=== PATIENT | female | born 1960 | race Caucasian/White ===

== ENCOUNTER 2019-03-30 12:31 | Inpatient (IN) | payer OTHER ==
[~2019-03-30] VITALS: Ht 170.2 cm; Wt 73.0 kg
[2019-03-30] VITALS (10 sets, daily range): BP systolic 109–161; BP diastolic 61–98
[2019-03-30 13:12] LABS: BASOPHILS % (AUTO) 0.6 % (0-1); EOSINOPHILS # (AUTO) 0.1 X10'3 (0-0.9); EOSINOPHILS % (AUTO) 1.8 % (0-6); HEMATOCRIT 35.5 % (35.0-45.0); HEMOGLOBIN 11.8 g/dl (12.0-16.0); LYMPHOCYTES % (AUTO) 14.4 % (21-51); MEAN CORPUSCULAR HEMOGLOBIN 27.9 PG (27.0-31.0); MEAN CORPUSCULAR HGB CONC 33.2 g/dL (33.0-36.5); MEAN CORPUSCULAR VOLUME 83.9 FL (78-98); MEAN PLATELET VOLUME 7.4 FL (7.4-10.4); MONOCYTES # (AUTO) 0.4 X10'3 (0-0.9); MONOCYTES % (AUTO) 6.2 % (2-12); NEUTROPHILS # (AUTO) 5.5 X10'3 (1.8-7.7); PLATELET COUNT 210 X10'3 (140-440); RED BLOOD COUNT 4.23 X10'6 (4.20-5.60); RED CELL DISTRIBUTION WIDTH 14.5 % (11.5-14.5); WHITE BLOOD COUNT 7.2 X10'3 (4.5-11.0)
[2019-03-30 13:36] LABS: ALANINE AMINOTRANSFERASE 44 U/L (12-78); ALBUMIN 3.8 G/DL (3.4-5.0); ALBUMIN/GLOBULIN RATIO 1.1 (1.1-1.5); ALKALINE PHOSPHATASE 84 IU/L (46-116); ANION GAP 6 (8-16); ASPARTATE AMINO TRANSFERASE 52 U/L (10-37); BILIRUBIN,TOTAL 0.6 MG/DL (0.1-1.0); BLOOD UREA NITROGEN 17 MG/DL (7-18); BUN/CREATININE RATIO 18.1 (6.6-38.0); CHLORIDE 106 MMOL/L (99-107); CREATININE 0.94 MG/DL (0.40-0.90); GLUCOSE 124 MG/DL (70-104); LIPASE 179 U/L (73-393); POTASSIUM 3.7 MMOL/L (3.5-5.1); SODIUM 142 MMOL/L (135-145); TOTAL CARBON DIOXIDE 29.9 MMOL/L (24-32); TOTAL PROTEIN 7.4 G/DL (6.4-8.2); TROPONIN I < 0.04 NG/ML (0.0-0.05); eGFR 61 ML/MIN
[2019-03-30 13:58] LABS: CALCIUM 9.3 MG/DL (8.5-10.1)
[2019-03-30] MEDS ORDERED: ondansetron/PF 4mg/2ml inj IV ONE (15:15)
[2019-03-30] MEDS ORDERED: fentaNYL/PF 50MCG/1 ML 2ML syringe IV ONE (15:15)
[2019-03-30] MEDS ORDERED: ketorolac trometh. 30mg/ml inj. IV ONE (15:15)
--- NOTE | 2019-03-30 16:48 | NUR ---
DR. WASHINGTON IN TO SEE PT FOR ADMIT.
[2019-03-30] MEDS ORDERED: HYDROcodone/acetaminophen 5mg/325mg tablet PO PRN (17:00)
[2019-03-30] MEDS ORDERED: magnesium hydroxide 30ml (MOM) UD suspension PO PRN (17:00)
[2019-03-30] MEDS ORDERED: mag hydrox/Alum hydrox/simeth 30ml oral suspension PO PRN (17:00)
[2019-03-30] MEDS ORDERED: ondansetron/PF 4mg/2ml inj IV PRN ×3 (17:00→19:10)
[2019-03-30] MEDS ORDERED: acetaminophen 325mg tablet PO PRN ×2 (17:00)
[2019-03-30] MEDS ORDERED: HYDROcodone/acetaminophen 10/325mg tab PO PRN (17:00)
[2019-03-30] MEDS ORDERED: ESTR25PO TOP (17:01)
[2019-03-30] MEDS ORDERED: OMEP40CA13 PO (17:01)
[2019-03-30] MEDS ORDERED: DULO30CA52 PO (17:01)
[2019-03-30] MEDS ORDERED: ALPR0.5T8 PO (17:01)
[2019-03-30] MEDS ORDERED: ATOR10TA70 PO (17:01)
[2019-03-30] MEDS: [UNRECOGNIZED DRUG - OTHER] TP SCH (17:10)
[2019-03-30] MEDS: HYDROmorphone inj. 0.5 MG/0.5 ML DISP.SYRIN IV PRN ×2 (17:24→23:28)
[2019-03-30] MEDS: dextrose 5%-1/2 normal saline 1,000 ML IV SCH (17:25)
[2019-03-30 17:31] LABS: URINE HCG NEGATIVE (NEG)
[2019-03-30 17:33] LABS: CLARITY,URINE CLEAR (Clear); COLOR,URINE YELLOW (Yellow); GLUCOSE, URINE NEGATIVE (Neg); KETONES,URINE NEGATIVE (Neg); LEUKOCYTE ESTERASE ,URINE SMALL (Neg); NITRITES, URINE NEGATIVE (Neg); OCCULT BLOOD,URINE NEGATIVE (Neg); PH,URINE 7.5 (4.8-8.0); PROTEIN,URINE NEGATIVE (Neg)
[2019-03-30 17:36] LABS: UA COLLECTION TYPE CLN CATCH MIDSTREAM
[2019-03-30 17:49] LABS: BACTERIA,URINE FEW /HPF (Neg); RBC,URINE 0-2 /HPF (0-2); SQUAMOUS EPITHELIAL CELL,UR FEW /LPF (FEW); WBC,URINE 0-4 /HPF (0-4)
--- NOTE | 2019-03-30 18:45 | NUR ---
report called from ED by GERMAINE Anand
[2019-03-30] MEDS ORDERED: ringers solution, lacted 1,000 ML IV SCH ×2 (18:57→19:06)
[2019-03-30] MEDS ORDERED: labetalol 20mg/4ml (5mg/ml) syringe IV PRN (19:00)
[2019-03-30] MEDS ORDERED: hydrALAZINE 20mg/ml inj. IV PRN (19:00)
[2019-03-30] MEDS ORDERED: HYDROmorphone inj. 0.5 MG/0.5 ML DISP.SYRIN IV PRN ×2 (19:00)
[2019-03-30] MEDS ORDERED: fentaNYL/PF 50MCG/1 ML 2ML syringe IV PRN ×2 (19:00)
[2019-03-30] MEDS ORDERED: meperidine/PF 25mg/ml syringe IV PRN (19:10)
[2019-03-30] MEDS ORDERED: proCHLORperazine 10 MG/2 ml inj IV PRN (19:10)
[2019-03-30] MEDS ORDERED: BUPIVAcaine/PF 2.5 mg/ml (0.25%) 30ml vial ONE (19:37)
[2019-03-30] MEDS ORDERED: ceFOXitin 2 GM ADDVANTGE BAG 50 ML IV ONE (19:37)
[2019-03-30] MEDS ORDERED: ceFAZolin 1000mg inj ONE (19:37)
[2019-03-30] MEDS ORDERED: dexamethasone sod phosphate 10mg/ml inj ONE (19:48)
[2019-03-30] MEDS ORDERED: sevoflurane 250ml liquid IH ONE (19:48)
[2019-03-30] MEDS ORDERED: neostigmine methylsulfate 1 MG/ML 10ml vial ONE (19:48)
[2019-03-30] MEDS ORDERED: glycopyrrolate 0.2mg/ml inj ONE (19:48)
[2019-03-30] MEDS ORDERED: fentaNYL/PF 50MCG/1 ML 2ML syringe ONE (19:58)
[2019-03-30] MEDS ORDERED: midazolam 2 mg/2 ml injection ONE (19:58)
[2019-03-30] MEDS ORDERED: rocuronium 10mg/ml inj IV ONE (20:08)
[2019-03-30] MEDS ORDERED: ondansetron/PF 4mg/2ml inj ONE (20:08)
[2019-03-30] MEDS ORDERED: LIDOcaine 2% (20mg/ml) 5ml vial ONE (20:08)
[2019-03-30] MEDS ORDERED: propofol inj 20 ML IV ONE (20:08)
[2019-03-30] MEDS ORDERED: acetaminophen 1,000mg/100ml IV 100 ML IV ONE (20:31)
[2019-03-30] MEDS ORDERED: ketorolac trometh. 30mg/ml inj. ONE (20:31)
--- NOTE | 2019-03-30 20:51 | NUR ---
Received from OR via SURGICAL BED , accompanied by Anesthesiologist STEFFANIE and report given by Anesthesiolgist. PATIENT WITH 20G PIV IN RIGHT UE RUNNING LR AT 100. MEDICATED FOR PAIN UPON ARRIVAL. ABDOMINAL DRESSINGS ARE CDI. NO DRAINAGE. SCDS DONNED. FAMILY INVITED INTO RR PER PATIENT REQUEST. Addendum: 03/30/19 at 2105 by Jens Hernandez RN, RN Amended: Links added.
[2019-03-30] MEDS: meperidine/PF 25mg/ml syringe IV PRN ×2 (20:56→21:32)
[2019-03-30] MEDS ORDERED: ALPRAZolam 0.5mg tablet PO SCH (21:00)
[2019-03-30] MEDS ORDERED: HYDROmorphone 1 mg/ml syringe ONE (21:07)
--- NOTE | 2019-03-30 21:18 | NUR ---
report called from Jens HERRON in recovery room. awaiting pt arrival to unit
--- NOTE | 2019-03-30 21:30 | NUR ---
pt arrived to unit via gurney, VSS, BLL, 2x rails up, SCDs on and IVF running per md order. will continue to monitor
--- NOTE | 2019-03-30 21:31 | NUR ---
ALL CRITERIA FOR TRANSFER TO THE FLOOR HAS BEEN ACHIEVED. VSS. BED LOW, CALL LIGHT AND VS. SET IN PLACE. RN PRESENT TO ACCEPT CARE. PATIENT RESTING COMFORTABLY IN BED. BELONGINGS SENT WITH PATIENT. DRESSINGS CDI. RN SEBASTIÁN PRESENT TO ACCEPT PATIENT. VSS. SPOUSE PRESENT AT BEDSIDE TO ASSIST. CARE TURNED OVER. ONE BAG OF BELONGINGS THAT SPOUSE HAD IS PRESENT. Addendum: 03/30/19 at 2141 by Jens Hernandez RN, RN Amended: Links added.
[2019-03-31 00:15] VITALS: BP 117/78
[2019-03-31 00:27] VITALS: BP 124/66
[2019-03-31] MEDS ORDERED: diphenhydrAMINE 50 mg/ml inj IV PRN (01:10)
[2019-03-31 01:33] VITALS: BP 111/69
[2019-03-31] MEDS: dextrose 5%-1/2 normal saline 1,000 ML IV SCH ×2 (02:59→07:53)
[2019-03-31] MEDS: HYDROmorphone inj. 0.5 MG/0.5 ML DISP.SYRIN IV PRN (03:47)
[2019-03-31 05:28] LABS: BASOPHILS % (AUTO) 0.2 % (0-1); EOSINOPHILS % (AUTO) 0.1 % (0-6); HEMATOCRIT 33.7 % (35.0-45.0); HEMOGLOBIN 11.2 g/dl (12.0-16.0); LYMPHOCYTES # (AUTO) 0.5 X10'3 (1.1-4.8); LYMPHOCYTES % (AUTO) 8.2 % (21-51); MEAN CORPUSCULAR HEMOGLOBIN 28.1 PG (27.0-31.0); MEAN CORPUSCULAR HGB CONC 33.3 g/dL (33.0-36.5); MEAN CORPUSCULAR VOLUME 84.4 FL (78-98); MEAN PLATELET VOLUME 7.7 FL (7.4-10.4); MONOCYTES # (AUTO) 0.2 X10'3 (0-0.9); MONOCYTES % (AUTO) 2.5 % (2-12); NEUTROPHILS # (AUTO) 5.5 X10'3 (1.8-7.7); PLATELET COUNT 232 X10'3 (140-440); RED CELL DISTRIBUTION WIDTH 14.7 % (11.5-14.5); WHITE BLOOD COUNT 6.2 X10'3 (4.5-11.0)
[2019-03-31 05:46] LABS: ALANINE AMINOTRANSFERASE 358 U/L (12-78); ALBUMIN 3.7 G/DL (3.4-5.0); ALKALINE PHOSPHATASE 146 IU/L (46-116); ANION GAP 9 (8-16); ASPARTATE AMINO TRANSFERASE 342 U/L (10-37); BILIRUBIN,TOTAL 0.7 MG/DL (0.1-1.0); BLOOD UREA NITROGEN 9 MG/DL (7-18); BUN/CREATININE RATIO 10.6 (6.6-38.0); CALCIUM 8.5 MG/DL (8.5-10.1); CHLORIDE 104 MMOL/L (99-107); CREATININE 0.85 MG/DL (0.40-0.90); GLUCOSE 132 MG/DL (70-104); POTASSIUM 4.2 MMOL/L (3.5-5.1); SODIUM 140 MMOL/L (135-145); TOTAL CARBON DIOXIDE 27.1 MMOL/L (24-32); TOTAL PROTEIN 7.4 G/DL (6.4-8.2); eGFR 69 ML/MIN
--- NOTE | 2019-03-31 06:48 | NUR ---
Problems reprioritized. Patient report given, questions answered & plan of care reviewed with GERMAINE Knowles.
[2019-03-31 07:00] VITALS: BP 126/58
[2019-03-31] MEDS ORDERED: pantoprazole 40mg Tablet.DR PO SCH (07:30)
[2019-03-31] MEDS: [UNRECOGNIZED DRUG - OTHER] TP SCH (07:53)
[2019-03-31] MEDS ORDERED: duloxetine 30mg CAPSULE.DR PO SCH (08:00)
[2019-03-31] MEDS ORDERED: atorvastatin 10mg tablet PO SCH (08:00)
[2019-03-31] MEDS ORDERED: ketorolac trometh. 30mg/ml inj. IV PRN (08:55)
[2019-03-31] MEDS ORDERED: HYDR-4383 PO (09:12)
== END 2019-03-31 11:21 | disposition home or self-care (01) | DRG 419 ==
LOC: ER 12:32 → SUR 3N 19:18
PROVIDERS: ADMIT Internal Medicine; ATTEND Internal Medicine
PROC: 0FT44ZZ Resection of Gallbladder, Percutaneous Endoscopic Approach (ICD-10-PCS; principal; 2019-03-30 19:48)
DX: K81.0 Acute cholecystitis (principal); E78.5 Hyperlipidemia, unspecified; G47.00 Insomnia, unspecified; K21.9 Gastro-esophageal reflux disease without esophagitis; F32.9 Major depressive disorder, single episode, unspecified; F41.9 Anxiety disorder, unspecified; R74.8 Abnormal levels of other serum enzymes; Z79.899 Other long term (current) drug therapy; Z85.3 Personal history of malignant neoplasm of breast; Z85.41 Personal history of malignant neoplasm of cervix uteri; Z87.891 Personal history of nicotine dependence; Z90.710 Acquired absence of both cervix and uterus; Z88.5 Allergy status to narcotic agent
CPT/HCPCS: 96374; 96375; 99285; Z7506; Z7508; 36415; 74176; 80053; 81001; 81025; 83690; 84484; 85025; 87081; 87088; 93005; A4215; A4618; A7000; G0378; J0131; J0690; J0694; J1100; J1170; J1200; J1885; J2001; J2175; J2250; J2405; J2704; J2710; J3010; J3490; J7120